=== PATIENT | female | born 1945 | race Caucasian/White ===

== ENCOUNTER 2018-08-19 05:40 | Inpatient (IN) ==
[2018-08-19] MEDS ORDERED: ceFAZolin 1,000 MG VIAL ONE (06:01)
[2018-08-19] MEDS ORDERED: VANCOMYCIN 1,000 MG VIAL ONE (06:01)
[2018-08-19] MEDS: LACTATED RINGERS 1,000 ML IV SCH (06:19)
[2018-08-19] MEDS ORDERED: TRANEXAMIC ACID 1,000 MG/10 ML VIAL ONE (06:35)
[2018-08-19] MEDS ORDERED: BUPIVACAINE SPINAL 0.75% 2 ML AMP SPINAL ONE (06:59)
[2018-08-19] MEDS ORDERED: ROPIVACAINE 0.5% 30 ML VIAL ONE (07:00)
[2018-08-19] MEDS ORDERED: ceFAZolin 2,000 MG in PREMIX 1 EACH IV ONE (07:00)
[2018-08-19] MEDS ORDERED: VANCOMYCIN INJ 1,000 MG in SODIUM CHLORIDE 0.9% 250 ML IV ONE (07:00)
[2018-08-19] MEDS ORDERED: LIDOCAINE 1% 20 ML VIAL ONE (07:03)
[2018-08-19] MEDS ORDERED: ceFAZolin 1,000 MG in SYRINGE 1 EACH IV ONE (07:30)
[2018-08-19] MEDS ORDERED: NALOXONE 0.4 MG/ML VIAL IV PRN (09:39)
[2018-08-19] MEDS ORDERED: ONDANSETRON 4 MG/2 ML VIAL IV PRN (09:39)
[2018-08-19] MEDS ORDERED: MAGNESIUM HYDROXIDE SUSP 30 ML UDCUP PO PRN (09:39)
[2018-08-19] MEDS ORDERED: BISACODYL 10 MG SUPP RECTAL PRN (09:39)
[2018-08-19] MEDS ORDERED: PROMETHAZINE 25 MG/1 ML VIAL IM PRN (09:39)
[2018-08-19] MEDS ORDERED: MORPHINE 4 MG/1 ML VIAL IV PRN ×2 (09:39→10:22)
[2018-08-19] MEDS ORDERED: diphenhydrAMINE CAP 25 MG CAPSULE PO PRN (09:39)
[2018-08-19] MEDS ORDERED: TEMAZEPAM 7.5 MG CAPSULE PO PRN (09:39)
[2018-08-19] MEDS ORDERED: LACTULOSE 20 GM/30 ML UDCUP PO PRN (09:39)
[2018-08-19] MEDS ORDERED: fentaNYL 100 MCG/2 ML VIAL ONE (09:50)
[2018-08-19] MEDS ORDERED: MIDAZOLAM 2 MG/2 ML VIAL ONE (09:50)
[2018-08-19] MEDS ORDERED: DEXAMETHASONE 10 MG/1 ML VIAL ONE (09:50)
[2018-08-19] MEDS ORDERED: PROPOFOL 200 MG/20 ML VIAL IV ONE (09:50)
[2018-08-19] MEDS ORDERED: KETAMINE 500 MG/10 ML VIAL ONE (09:51)
[2018-08-19] MEDS ORDERED: PHENYLEPHRINE 1 MG/10 ML SYRINGE IV ONE (09:51)
[2018-08-19] MEDS ORDERED: SODIUM CHLORIDE 0.9% 100 ML IV ONE (09:51)
[2018-08-19] MEDS ORDERED: LACTATED RINGERS 1,000 ML IV ONE (09:51)
[2018-08-19] MEDS: MORPHINE PCA 30 MG/30 ML SYRINGE IV SCH (10:01)
[2018-08-19] MEDS: ceFAZolin 1,000 MG in SYRINGE 1 EACH IV SCH ×2 (14:25→22:54)
[2018-08-19] MEDS: FONDAPARINUX 2.5 MG/0.5 ML SYRINGE SUBCUT SCH (21:27)
[2018-08-19] MEDS: DOCUSATE SODIUM 100 MG CAPSULE PO SCH (21:28)
[2018-08-20 05:02] LABS: Basophils % 0.2 % (0.0-0.8); Hematocrit 31.2 VOL% (35.7-47.0); Hemoglobin 10.2 GM/DL (12.0-16.0); Immature Granulocytes % 0.6 %; Immature Granulocytes Absolute 0.07 #; Lymphocytes # 1.3 10*3/uL (1.4-4.0); Lymphocytes % 10.7 % (21.3-54.2); Mean Corpuscular HGB Conc 32.7 GM/DL (32-36); Mean Corpuscular Hemoglobin 32 PG (27-34); Mean Corpuscular Volume 98.7 FL (87-102); Mean Platelet Volume 11.7 FL (9.6-12.0); Monocytes # 0.7 10*3/uL (0.11-0.8); Monocytes % 5.6 % (1.7-12.7); Neutrophils % 82.9 % (38.7-73.9); Platelet Count 173 T/CUMM (130-400); Red Blood Count 3.16 MC/CUMM (3.8-5.5); Red Cell Distribution Width 12.2 % (9.3-17.3)
[2018-08-20 05:31] LABS: Calcium 8.4 MG/DL (8.5-10.1); Osmolality,Calculated 281.3 MOS/KG (273-304); Potassium 3.8 MMOL/L (3.5-5.1)
[2018-08-20] MEDS: ESTRADIOL 0.01% VAG CREAM 42.5 GM TUBE VAG SCH ×2 (08:44→10:06)
[2018-08-20] MEDS: CALCIUM (CARBONATE)/VITAMIN D 600 MG-400 UNIT TABLET PO SCH (08:54)
[2018-08-20] MEDS: DOCUSATE SODIUM 100 MG CAPSULE PO SCH ×2 (08:54→20:13)
[2018-08-20] MEDS: MULTIVITAMIN (CENTRUM) TABLET PO SCH (08:54)
[2018-08-20] MEDS: ESTROPIPATE 0.75 MG TABLET PO SCH (08:55)
[2018-08-20] MEDS: LACTATED RINGERS 1,000 ML IV SCH (10:32)
[2018-08-20] MEDS: MORPHINE PCA 30 MG/30 ML SYRINGE IV SCH (13:50)
[2018-08-20] MEDS: FONDAPARINUX 2.5 MG/0.5 ML SYRINGE SUBCUT SCH (20:13)
[2018-08-21] MEDS: CALCIUM (CARBONATE)/VITAMIN D 600 MG-400 UNIT TABLET PO SCH (10:17)
[2018-08-21] MEDS: MULTIVITAMIN (CENTRUM) TABLET PO SCH (10:17)
[2018-08-21] MEDS: DOCUSATE SODIUM 100 MG CAPSULE PO SCH ×2 (10:17→21:44)
[2018-08-21] MEDS: ESTROPIPATE 0.75 MG TABLET PO SCH (10:18)
[2018-08-21] MEDS: ESTRADIOL 0.01% VAG CREAM 42.5 GM TUBE VAG SCH (10:19)
[2018-08-22] MEDS: CALCIUM (CARBONATE)/VITAMIN D 600 MG-400 UNIT TABLET PO SCH (09:42)
[2018-08-22] MEDS: MULTIVITAMIN (CENTRUM) TABLET PO SCH (09:42)
[2018-08-22] MEDS: DOCUSATE SODIUM 100 MG CAPSULE PO SCH (09:43)
[2018-08-22] MEDS: ESTROPIPATE 0.75 MG TABLET PO SCH (09:43)
[2018-08-22 12:11] VITALS: BP 134/73
== END 2018-08-22 12:10 | disposition home health service (06) | DRG 470 ==
LOC: N.OR 05:40 → N.SDSINP 05:42 → N.OR 08:54 → N.3E 09:39
PROVIDERS: ADMIT Orthopaedic Surgery; ATTEND Orthopaedic Surgery